=== PATIENT | male | born 1980 | race Caucasian/White ===

== ENCOUNTER 2018-04-11 03:47 | Emergency (ER) | payer BC, SELFPAY ==
[2018-04-11 03:48] VITALS: BP 158/87; PULSE 84; RESP 12; TEMP 36.5; O2SAT 95; BMI 38.7
--- NOTE | 2018-04-11 04:34 | ED.DCSUM_ITS ---
- ER Visit Summary Date of Service: 04/11/18 Chief Complaint: Allergic reaction History of Present Illness: The patient is a 38 M presenting with concern for allergic reaction. Patient states he woke from sleep approximately an hour and a half ago and had diffuse redness and itching of his skin. He has no difficulty breathing or swallowing. He states he has not been outside recently. He denies any new soaps, medications, detergents. No new pets. No new foods. He complains of diffuse itching. Denies other complaints. Physical Examination: Vitals are stable. Patient is afebrile. Alert no acute distress. HEENT exam is unremarkable. Pharynx is normal, no edema, no tongue swelling Neck is supple. Lungs are clear and equal bilaterally. Heart is regular rate and rhythm. Abdomen is soft nontender nondistended. Extremities are unremarkable. Skin is warm and dry. Diffuse urticaria No focal neurologic deficit. Remainder of exam is unremarkable. Emergency Department Course and Treatment: Patient was given Solu-Medrol IV with improvement. On repeat exam, he has no pharyngeal edema, no tongue swelling. He is feeling improved. He is given a prescription for prednisone. Advised follow-up with his primary care physician. Advised return to ED if worsening complaints. Disposition: Discharge home Impression: Allergic reaction This note was generated with [employer] dictation software. It may contain incorrect words, spelling, and punctuation that were not noted in review of the chart prior to signing ED Disposition - Plan for ED Patient: Chief Complaint: Allergic Reaction Instructions: ED Allergic Reaction General Other Prescriptions: Prednisone [Deltasone] 20 mg PO DAILY #5 tablet Referrals: Camden Monsalve DO [Primary Care Provider] -
[2018-04-11] MEDS: MethylPREDNISolone 125 MG/2 ML Vial IV (04:40)
--- NOTE | 2018-04-11 05:39 | ED.DEP ---
ED Disposition - Plan for ED Patient: Chief Complaint: Allergic Reaction Instructions: ED Allergic Reaction General Other Prescriptions: Prednisone [Deltasone] 20 mg PO DAILY #5 tablet Referrals: Camden Monsalve DO [Primary Care Provider] -
[2018-04-11 05:51] VITALS: BP 154/79; PULSE 81; RESP 16; O2SAT 97
== END 2018-04-11 05:52 | disposition home or self-care (01) ==
PROVIDERS: Emergency Provider Emergency Medicine; Family Provider Student in an Organized Health Care Education/Training Program; PCP Student in an Organized Health Care Education/Training Program
DX: L50.0 Allergic urticaria (principal)
CPT/HCPCS: 96374; 99283; A4216

== ENCOUNTER 2018-04-17 05:02 | Emergency (ER) | payer BC, SELFPAY ==
[2018-04-17 05:04] VITALS: BP 183/119; PULSE 82; RESP 17; TEMP 36.7; O2SAT 94; BMI 37.2
--- NOTE | 2018-04-17 05:24 | ED.VISSUMM ---
- ER Visit Summary Date of Service: 04/17/18 Chief Complaint: Hives History of Present Illness: The patient is a 38 M develop hives on the eighth. Was treated with IV Solu-Medrol and oral prednisone and the hives resolved. It returned again tonight. Mild itching. Denies other symptoms. Has no idea why he is allergic reaction is too. Says he has had no difference in his diet, soaps, colognes or anything else new at his home. He denies any lip swelling or tongue swelling. No shortness of breath. Physical Examination: Well-appearing middle-age male. Vital signs are stable afebrile. He does not look septic or toxic. He is no acute distress. H EENT exam unremarkable. No swelling of lips or tongues. Neck nontender. Lungs clear to auscultation bilaterally. Heart regular rate and rhythm no murmur. Abdomen soft nontender. He is moving all 4 extremities. Neurologically is awake and alert with no focal motor deficits. Back nontender. Skin both upper extremities, chest, abdomen and back and thighs have a rash consistent with hives. There is no petechiae or purpura. No vesicles. No sloughing of skin. Test Results: None Emergency Department Course and Treatment: Treated with p.o. prednisone and placed on a prescription for prednisone. Treatment Plan: Prednisone 40 mg a day for 1 week or until rash resolves for 2 days. Disposition: Discharge Impression: Rash secondary to acute allergic reaction (hives). This note was generated with [employer] dictation software. It may contain incorrect words, spelling, and punctuation that were not noted in review of the chart prior to signing ED Disposition - Plan for ED Patient: Chief Complaint: Rash Referrals: Camden Monsalve DO [Primary Care Provider] -
--- NOTE | 2018-04-17 05:26 | ED.DEP ---
ED Disposition - Plan for ED Patient: Disposition: Home or Assisted Living Chief Complaint: Rash Instructions: ED Allergic Reaction General Other, ED Urticaria Prescriptions: Prednisone [Deltasone] 40 mg PO DAILY 7 Days tab Referrals: Camden Monsalve DO [Primary Care Provider] - As Needed Additional Instructions: Prednisone daily for the hives. May stop once the rash has been gone for 2 days. Benadryl for itching. If the hives return you may need to get allergy testing to see what may be the cause of the allergic reaction.
[2018-04-17] MEDS: predniSONE 20 MG Tablet 60 MG PO (05:29)
[2018-04-17 05:31] VITALS: BP 157/106; PULSE 83; RESP 18; O2SAT 93
== END 2018-04-17 05:34 | disposition home or self-care (01) ==
PROVIDERS: Emergency Provider Emergency Medicine; Family Provider Student in an Organized Health Care Education/Training Program; PCP Student in an Organized Health Care Education/Training Program
DX: L50.0 Allergic urticaria (principal)
CPT/HCPCS: 99282

== ENCOUNTER 2018-06-16 00:54 | Emergency (ER) | payer BC, SELFPAY ==
[2018-06-16 00:55] VITALS: BP 183/127; PULSE 89; RESP 24; TEMP 36.2; O2SAT 96; BMI 39.2
[2018-06-16 01:05] VITALS: BP 162/121
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
[2018-06-16 01:56] LABS: Bacteria 0 SEEN /hpf (None Seen); Color, Urine Yellow (Yellow); Glucose, Dipstick Normal (Normal); Ketone-Dipstick Negative (Negative); Leukocyte Esterase-Dipstick Negative /ul (Negative); Mucous, Urine 0 SEEN /hpf (<or=2+); Nitrite-Dipstick Negative (Negative); Occult Blood-Urine Negative /ul (Negative); Protein-Dipstick Negative (Negative); Red Blood Cells-Urine 0 SEEN /hpf (0-5); Squamous Epithelial Cells - UA 0 SEEN /hpf (0-5); Urine Bilirubin Dipstick Negative (Negative); Urine Clarity Clear (Clear); Urine Urobilinogen Normal (Normal); White Blood Cells 0 SEEN /hpf (0-5)
--- NOTE | 2018-06-16 02:34 | ED.DEP ---
ED Disposition - Plan for ED Patient: Disposition: Home or Assisted Living Chief Complaint: Allergic Reaction Instructions: Overactive Bladder Syndrome (OAB) Referrals: Camden Monsalve DO [Primary Care Provider] - Adolfo Salazar MD [STAFF PHYSICIAN] -
[2018-06-16 02:44] VITALS: BP 164/116; PULSE 100; O2SAT 94
--- NOTE | 2018-06-16 02:46 | NURSING ---
DR. GÓMEZ MADE AWARE OF PATIENT'S BP OF 164/[address] GÓMEZ STATES THAT IS NOT SOMETHING I WILL TREAT, HAVE HIM FOLLOW UP WITH HIS DOCTOR. PATIENT MADE AWARE BY THIS NURSE AND HE HAS AN APPT ON MONDAY.
== END 2018-06-16 02:48 | disposition home or self-care (01) ==
PROVIDERS: Emergency Provider Emergency Medicine; Family Provider Student in an Organized Health Care Education/Training Program; PCP Student in an Organized Health Care Education/Training Program
DX: L29.9 Pruritus, unspecified (principal); R20.2 Paresthesia of skin; R39.15 Urgency of urination; R35.0 Frequency of micturition
CPT/HCPCS: 81001; 99282

== ENCOUNTER 2019-01-17 05:59 | Emergency (ER) | payer BC, SELFPAY ==
[2019-01-17 06:00] VITALS: BP 168/113; PULSE 67; RESP 16; TEMP 36.9; O2SAT 94; BMI 40.6
--- NOTE | 2019-01-17 06:05 | CT_ITS ---
HISTORY: LEFT FLANK PAIN-SUDDEN ONSET 4AMURINARY FREQUENCYHX-KIDNEY STONESSURG-UMBILICAL HERNIA EXAMINATION: CT Abdomen And Pelvis W/O Contrast TECHNIQUE: Helically acquired images were obtained of the abdomen and pelvis without oral or IV contrast as per renal stone protocol. A radiation dose optimization technique was used for this scan. IV Contrast dosage and agent: None. Oral contrast: None. COMPARISON: 03/16/2015 FINDINGS: Both kidneys are normal in position. Left UVJ 2 mm stone with mild hydronephrosis and hydroureter proximal to the stone. Several additional 2 mm calyceal stones at the upper and lower pole regions of the left kidney. No renal calculi on the right and no hydronephrosis or hydroureter on the right. Adrenal glands are not enlarged. Lower thorax: Clear. Chronic mild elevation of the right hemidiaphragm. No pleural effusion or pericardial effusion. Limited non-infusion exam. Allowing for this, normal liver, spleen, pancreas, gallbladder, and biliary system. Abdominal aorta is normal in caliber. No ascites or retroperitoneal lymph node enlargement. GI tract: No obstruction. Normal appendix. Pelvis: Poor distention of the urinary bladder. As above, left UVJ 2 mm stone. No free fluid or lymph node enlargement. Bones: No acute osseous abnormality. CT/Abdomen/Pelvis without Cont IMPRESSION: 1. Left UVJ 2 mm stone with mild hydronephrosis and hydroureter proximal to the stone. 2. Several additional 2 mm stones within the left kidney. 3. No hydronephrosis or hydroureter on the right. Individualized dose optimization techniques were used for this CT. at 0701 Reported and signed by: Huey Matos MD Electronically Signed: Huey Matos, at 7:00 EDT Tel , Service support ,
--- NOTE | 2019-01-17 06:07 | ED.VISSUMM ---
- ER Visit Summary Date of Service: 01/17/19 Chief Complaint: Left flank pain History of Present Illness: The patient is a 38 M who woke at 2 AM this morning with urinary urgency and frequency followed by left flank pain. He had similar symptoms with prior kidney stones. No nausea or vomiting. In the past he has been able to pass the kidney stones on his own without requiring surgery. Physical Examination: Blood pressure is 160/113, otherwise vitals normal. Patient lying in bed no acute distress. Heart is regular rate and rhythm. Lung sounds clear. Abdomen is soft with no focal tenderness. Test Results: CBC is remarkable only for hemoglobin concentrated at 16.8. Chemistry studies normal. Urinalysis shows 150 blood. No sign of infection. CT flank per my reading shows a 2-1/2 to 3 mm stone in the distal left ureter. There is also a small stone noted in the left kidney. Emergency Department Course and Treatment: Patient was initially given Toradol, Zofran, and IV fluids. On repeat examination his pain was sniffily improved but he did have re-recurrence of pain. He was given a dose of morphine and Zofran and his will pick him up. He already made a follow-up appointment with his urologist in [place]. Treatment Plan: [] Disposition: Discharge Impression: Left ureterolithiasis This note was generated with [employer] dictation software. It may contain incorrect words, spelling, and punctuation that were not noted in review of the chart prior to signing ED Disposition - Plan for ED Patient: Disposition: Home or Assisted Living Instructions: ED Stone Renal W Colic Prescriptions: Hydrocodone Bitart/Apap 5-325 [[place] 5MG-325MG] 1 tablet PO Q6H PRN PRN 3 Days #10 tablet PRN Reason: Pain Ondansetron [Zofran Odt] 4 mg PO Q8H PRN PRN #10 tablet PRN Reason: Nausea Ketorolac [Toradol] 10 mg PO Q6H PRN #14 tablet PRN Reason: Pain Additional Instructions: Follow-up with your urologist as scheduled.
[2019-01-17] MEDS: Ketorolac 30 MG/ML Syringe IV (06:14)
[2019-01-17] MEDS: Ondansetron 4 MG/2 ML Vial IV ×2 (06:14→06:52)
[2019-01-17] MEDS: 0.9% Normal Saline 1,000 ML 250 ML IV (06:15)
[2019-01-17 06:16] LABS: Red Blood Cells-Urine 0 SEEN /hpf (0-5)
[2019-01-17 06:17] LABS: Glucose, Dipstick Normal (Normal); Ketone-Dipstick 5 mg/dl (Negative); Leukocyte Esterase-Dipstick 25 /ul (Negative); Nitrite-Dipstick Negative (Negative); Occult Blood-Urine 150 /ul (Negative); Protein-Dipstick 30 mg/dl (Negative); Specific Gravity, Urine 1.025 (1.002-1.030); Urine Bilirubin Dipstick Negative (Negative); Urine Urobilinogen Normal (Normal)
[2019-01-17 06:22] LABS: Absolute Lymphocyte Count 2.49 X10^3/ul (0.83-4.51); Absolute Neutrophil Count 6.5 X10^3/uL (2.0-7.7); Basophil# 0.03 X10^3/uL; Basophil% 0.3 % (0-1); Eosinophil# 0.46 X10^3/uL; Eosinophils% 4.4 % (0-5); Hematocrit 47.1 % (40-54); Hemoglobin 16.8 g/dl (13.0-16.5); Lymphocyte # 2.49 X10^3/ul (4.0); Lymphocyte % 23.8 % (19-41); Mean Corp Hgb Conc 35.7 g/gl (32-36); Mean Corpuscular Hgb 28.6 pg (27.0-32.0); Mean Corpuscular Volume 80.1 fL (80-94); Mean Platelet Vol. 10.2 fl (6.2-12.0); Monocyte% 8.6 % (0-10); Neutrophil # 6.51 X10^3/uL (2.7-7.7); Neutrophil % 62.2 % (47-70); POSITIVE COUNT NO; POSITIVE DIFFERENTIAL NO; POSITIVE MORPHOLOGY NO; Platelet Count 242 K/mm3 (150-450); RBC Distribution Width CV 12.8 % (11.6-14.6); Red Blood Count 5.88 M/mm3 (4.6-6.2); White Blood Count 10.5 K/mm3 (4.4-11.0)
[2019-01-17 06:22] LABS: Color, Urine Yellow (Yellow); Urine Clarity Clear (Clear)
[2019-01-17 06:23] LABS: Bacteria RARE /hpf (None Seen); Mucous, Urine 1+ /hpf (<or=2+); Squamous Epithelial Cells - UA 0-5 SEEN /hpf (0-5); White Blood Cells 0-5 SEEN /hpf (0-5)
[2019-01-17 06:35] LABS: Anion Gap 5 (5-15); BUN 15 mg/dL (7-18); BUN/Creat Ratio 13.3 RATIO (10-20); Calcium,Total 8.6 mg/dL (8.5-10.1); Chloride 109 mmol/L (98-107); Creatinine, Serum 1.13 mg/dL (0.70-1.30); EST Glomerular Filtration Rate 77 mL/min (>60); Est Glom Filt Rate - Afr Amer 93 mL/min (>60); Estimated Creatinine Clearance 83.68 ml/min; Glucose 127 mg/dL (74-106); Potassium 3.9 mmol/L (3.5-5.1); Sodium Level 139 mmol/L (136-145)
[2019-01-17] MEDS: Morphine 4 MG/ML Syringe IV (06:52)
[2019-01-17 07:23] VITALS: PULSE 74; RESP 16; O2SAT 98
== END 2019-01-17 07:24 | disposition home or self-care (01) ==
PROVIDERS: Emergency Provider Emergency Medicine; Family Provider Student in an Organized Health Care Education/Training Program; PCP Student in an Organized Health Care Education/Training Program
DX: N13.2 Hydronephrosis with renal and ureteral calculous obstruction (principal); G47.33 Obstructive sleep apnea (adult) (pediatric); Z87.442 Personal history of urinary calculi
CPT/HCPCS: 74176; 80048; 81001; 85025; 96361; 96374; 96375; 99283; J7030; J2405

== ENCOUNTER 2019-06-12 04:31 | Emergency (ER) | payer BC, SELFPAY ==
[2019-06-12 04:31] VITALS: BP 167/113; PULSE 59; RESP 16; TEMP 36.8; O2SAT 96; BMI 38.9
--- NOTE | 2019-06-12 04:48 | CT_ITS ---
STUDY: CT ABDOMEN AND PELVIS WITHOUT CONTRAST REASON FOR EXAM: Male, 39 years old. Left flank pain RADIATION DOSAGE (If Supplied By Facility): CTDIvol = ( 21.02 ) mGy, DLP = ( 1213.11 ) mGycm TECHNIQUE: Transaxial images were obtained from the dome of the diaphragm to the symphysis pubis without oral contrast, and without intravenous contrast. Sagittal and coronal images were reconstructed. Individualized dose optimization techniques were used for this CT. COMPARISON: None. FINDINGS: The lung bases are clear. The liver is normal. No dilated intrahepatic biliary radicles. The gallbladder is normal with no calcifications within it. There is no pericholecystic fluid collection or streakiness The spleen is normal. The pancreas is normal. Both adrenals are normal. A left-sided hydroureteronephrosis secondary to an obstructing 4.4 mm calculus in the distal third of the left ureter. The right kidney is normal The stomach is normal. There is no bowel distention, acute appendicitis or diverticulitis. No constricting lesions are seen in large bowel. The abdominal wall is intact with no hernias. There is no ascites or any free intraperitoneal air. No indication of epiploic appendagitis The vascular structures in the retroperitoneum are normal. There is no retrocrural, retroperitoneal or mesenteric adenopathy. The bones and joints are normal. The urinary bladder is normal.--The prostate is normal. There is no inguinal or pelvic adenopathy. There is no inguinal hernia. . CT/Abdomen/Pelvis without Cont IMPRESSION: A left-sided hydroureteronephrosis secondary to a 4.4 mm obstructing calculus in the distal third of the left ureter Electronically Signed: Germain Forrest MD at 5:38 EDT Tel , Service support ,
--- NOTE | 2019-06-12 04:53 | ED.VIS.GEN ---
History of Present Illness Chief Complaint: Flank Pain Narrative: Patient is a 39-year-old male who presents with chief complaint kidney stone. He does have a history of prior kidney stones with similar symptoms. He complains of 3 hours of severe left flank and left lower abdominal pain. He reports nausea without vomiting. He reports sweats. No documented fevers. He also complains of some diarrhea. He complains of dark urine and urinary urgency. No dysuria. He has otherwise recently been well. He has never needed intervention for kidney stone such as lithotripsy or ureteral stent. Past Medical History - Allergies and Home Meds Allergies/Adverse Reactions: Allergies hydroxyzine [From Vistaril] Adverse Reaction (Verified 06/12/19 04:34) Hives trazodone Adverse Reaction (Verified 06/12/19 04:34) Hives ALMONDS Allergy (Uncoded 01/17/19 06:07) Anaphylaxis Primary Care Physician: Camden Monsalve DO [Primary Care Provider] - Adolfo Salazar MD [STAFF PHYSICIAN] - Past Medical History: - - Ureterolithiasis Smoking Status: Never smoker Review of Systems All systems negative except as indicated General: Reports: Sweats. Denies: Fever Cardiovascular: Denies: Chest pain Respiratory: Denies: Dyspnea Gastrointestinal: Reports: Abdominal pain, Nausea Genitourinary: Reports: - - Urgency Musculoskeletal: Reports: Back pain Physical Exam Vital Signs/Narrative: Vital Signs Temp Pulse Resp BP Pulse Ox 06/12/19 04:31 98.3 F 59 L 16 167/113 H 96 Inital Vital Signs reviewed: Yes General: Well nourished Head: Normocephalic Eyes: EOMI ENT: Moist mucous membranes Neck: Supple Cardiovascular: Regular rate, Regular rhythm Respiratory: No distress, CTA bilaterally Abdomen: Soft, Nondistended, Tender - Left lower quadrant Back: Nontender Skin: Normal color Neurological: Alert Psychological: Normal affect Diagnostic/Tx/Re-eval - Medical Decision Making Patient was treated with IV fluids, Toradol, morphine and Zofran. He reports considerable improvement on reevaluation and his pain is at a tolerable level. Laboratory studies as above notable only for blood in the urine. CT does show a 4.4 mm left distal ureteral calculus. Patient was provided with prescriptions for Percocet and Flomax and referred to urology or he can follow-up with his urologist at the [facility]. He does understand to return for new or worsening symptoms. All questions answered bedside. Patient agreeable to plan was discharged home. ED Disposition - Plan for ED Patient: Disposition: Home or Assisted Living Diagnosis: Ureterolithiasis Instructions: KIDNEY STONE w/ Colic Prescriptions: Tamsulosin HCl [Flomax] 0.4 mg PO DAILY #7 cap Prescription Printed Oxycodone HCl/Acetaminophen [Percocet 5/325] 1 tab PO Q6H PRN PRN 3 Days #12 tab PRN Reason: Pain Prescription Printed Referrals: Camden Monsalve DO [Primary Care Provider] - Adolfo Salazar MD [STAFF PHYSICIAN] -
[2019-06-12 04:56] LABS: Bacteria 0 SEEN /hpf (None Seen); Mucous, Urine 0 SEEN /hpf (<or=2+); Squamous Epithelial Cells - UA 0 SEEN /hpf (0-5)
[2019-06-12] MEDS: 0.9% Normal Saline 1,000 ML 1000 ML IV (04:56)
[2019-06-12] MEDS: Morphine 4 MG/ML Syringe IV (04:56)
[2019-06-12] MEDS: Ketorolac 30 MG/ML Syringe IV (04:57)
[2019-06-12] MEDS: Ondansetron 4 MG/2 ML Vial IV (04:57)
[2019-06-12 04:59] LABS: Color, Urine Yellow (Yellow); Glucose, Dipstick Normal (Normal); Ketone-Dipstick Negative (Negative); Leukocyte Esterase-Dipstick Negative /ul (Negative); Nitrite-Dipstick Negative (Negative); Occult Blood-Urine 250 /ul (Negative); Protein-Dipstick Negative (Negative); Urine Bilirubin Dipstick Negative (Negative); Urine Clarity Clear (Clear); Urine Urobilinogen Normal (Normal)
[2019-06-12 04:59] LABS: Absolute Lymphocyte Count 1.92 X10^3/uL (0.83-4.51); Absolute Neutrophil Count 4.6 X10^3/uL (2.0-7.7); Basophil# 0.04 X10^3/uL; Basophil% 0.5 % (0-1); Eosinophil# 0.45 X10^3/uL; Eosinophils% 5.8 % (0-5); Hematocrit 44.2 % (40-54); Hemoglobin 15.4 g/dL (13.0-16.5); Lymphocyte # 1.92 X10^3/ul (4.0); Lymphocyte % 24.8 % (19-41); Mean Corp Hgb Conc 34.8 g/dL (32-36); Mean Corpuscular Hgb 29.2 pg (27.0-32.0); Mean Corpuscular Volume 83.9 fL (80-94); Mean Platelet Vol. 9.7 fl (6.2-12.0); Monocyte# 0.64 X10^3/uL; Monocyte% 8.3 % (0-10); NRBC Flagged by Analyzer 0 % (0-5); Neutrophil # 4.64 X10^3/uL (2.7-7.7); Neutrophil % 60.1 % (47-70); Platelet Count 174 K/mm3 (150-450); RBC Distribution Width CV 12.6 % (11.6-14.6); Red Blood Count 5.27 M/mm3 (4.6-6.2); White Blood Count 7.7 K/mm3 (4.4-11.0)
[2019-06-12 05:12] LABS: Anion Gap 8 (5-15); BUN 15 mg/dL (7-18); BUN/Creat Ratio 14.3 RATIO (10-20); Calcium,Total 7.9 mg/dL (8.5-10.1); Chloride 110 mmol/L (98-107); Creatinine, Serum 1.05 mg/dL (0.70-1.30); EST Glomerular Filtration Rate 84 mL/min (>60); Est Glom Filt Rate - Afr Amer 102 mL/min (>60); Estimated Creatinine Clearance 92.29 ml/min; Glucose 161 mg/dL (74-106); Potassium 3.6 mmol/L (3.5-5.1); Sodium Level 142 mmol/L (136-145)
[2019-06-12 05:18] LABS: Red Blood Cells-Urine 25-50 SEEN /hpf (0-5); White Blood Cells 0-5 SEEN /hpf (0-5)
[2019-06-12 05:54] VITALS: BP 145/72; PULSE 88; RESP 17; O2SAT 96
== END 2019-06-12 05:55 | disposition home or self-care (01) ==
PROVIDERS: Emergency Provider Emergency Medicine; Family Provider Student in an Organized Health Care Education/Training Program; PCP Student in an Organized Health Care Education/Training Program
DX: N13.2 Hydronephrosis with renal and ureteral calculous obstruction (principal); Z87.442 Personal history of urinary calculi
CPT/HCPCS: 74176; 80048; 81001; 85025; 96361; 96374; 96375; 99283; J7030; A4216; J2405

== ENCOUNTER 2019-07-04 02:59 | Emergency (ER) | payer BC, SELFPAY ==
[2019-07-04 03:00] VITALS: BP 163/96; PULSE 84; RESP 16; TEMP 36.8; O2SAT 96; BMI 41.2
--- NOTE | 2019-07-04 03:19 | ED.DCSUM_ITS ---
History of Present Illness Chief Complaint: Flank Pain Informant: Patient - Abdominal Pain/Flank Pain Onset: Weeks - 1 Context: Gradual Onset Timing: Waxes and wanes Quality: Aching, Dull Location: Left Flank Current Severity: Severe Maximum Severity: Severe Worsened by: Nothing Relieved by: Nothing, - - tried 2 percocet, did not help at all - Nausea/Vomiting/Emesis GI Symptom: Nausea, Vomiting Onset: Yesterday Severity: Mild - Diarrhea/Melena/Hematochezia GI Symptom: Diarrhea. Negative for: Melena, Hematochezia Stool Quality: Negative for: Black, Maroon, JUNIE per rectum Severity: Mild Associated Symptoms: Dysuria - just tonight, Urgency. Negative for: Frequency, Hematuria Narrative: Diagnosed with a kidney stone a couple weeks ago, but just started really giving him pain in this past week. He was prescribed Percocet which she tried to night because the pain got worse, but it really did not help. Vomited once. Saw urology, expectant management at that time due to it being 4.4 mm and stuck at the distal third of the ureter. His pain has been left low back and mid abdomen/flank, but has not radiated into the groin or felt like it has moved at all. No fevers. No hematuria. No urinary retention. - Past Medical History (1) Kidney stone on left side Status: Chronic Past Medical History - Allergies and Home Meds Allergies/Adverse Reactions: Allergies hydroxyzine [From Vistaril] Adverse Reaction (Verified 07/04/19 03:03) Hives trazodone Adverse Reaction (Verified 07/04/19 03:03) Hives ALMONDS Allergy (Uncoded 07/04/19 03:03) Anaphylaxis Primary Care Physician: Camden Monsalve DO [Primary Care Provider] - Lives: Spouse/ Significant Other Smoking Status: Never smoker Review of Systems General: Denies: Chills, Fever, Sweats Eyes: Denies: Visual changes - bilaterally, Diplopia ENT: Denies: Rhinorrhea, Sore throat Cardiovascular: Denies: Chest pain, Palpitations Respiratory: Denies: Dyspnea, Cough, Dyspnea on exertion Gastrointestinal: Reports: Abdominal pain, Nausea, Vomiting, Diarrhea. Denies: Melena, Hematochezia Genitourinary: Reports: Dysuria. Denies: Hematuria, Frequency Musculoskeletal: Reports: Back pain. Denies: Extremity Pain Skin: Denies: Rash, Wounds Neurological: Denies: Headache, Weakness, Numbness Physical Exam Vital Signs/Narrative: Vital Signs Temp Pulse Resp BP Pulse Ox 07/04/19 03:00 98.2 F 84 16 163/96 H 96 Inital Vital Signs reviewed: Yes General: Well nourished, Well developed, No Acute Distress Head: Normocephalic, Atraumatic Eyes: Perrl, EOMI ENT: Moist mucous membranes, No rhinorrhea Neck: Supple, Nontender Cardiovascular: Regular rate, Regular rhythm, No murmurs Respiratory: No distress, CTA bilaterally, Chest nontender Abdomen: Soft, Nontender, Nondistended, Normal bowel sounds Back: Normal Inspection, CVA tenderness - minimal left, - - no rash Extremities: Nontender, No edema Skin: Normal color, No rash, No Trauma Neurological: Alert, Oriented x3, Cranial nerves II-XII grossly intact, Normal Strength, Normal Sensation, Normal Gait Psychological: Normal affect, Normal Mood Diagnostic/Tx/Re-eval Laboratory Tests 07/04/19 Range/Units 03:20 Urine Color Yellow (Yellow) Urine Clarity Sl. Cloudy (Clear) Urine pH 7.0 (5.0 - 8.0) Ur Specific [place] 1.010 (1.002-1.030) Urine Protein 15 H (Negative) mg/dl Urine Glucose (UA) Normal (Normal) mg/dl Urine Ketones 5 H (Negative) mg/dl Urine Occult Blood 25 H (Negative) /ul Urine Nitrite Negative (Negative) Urine Bilirubin Negative (Negative) mg/dL Urine Urobilinogen Normal (Normal) mg/dl Ur Leukocyte Esterase Negative (Negative) /ul Urine RBC 0-5 SEEN (0-5) /hpf Urine WBC 0 SEEN (0-5) /hpf Ur Squamous Epith Cells 0 SEEN (0-5) /hpf Urine Bacteria 0 SEEN (None Seen) /hpf Urine Mucus 0 SEEN (<or=2+) /hpf - Medical Decision Making Urinalysis shows no signs of infection. I reviewed his CT from earlier this month which showed a 4.4 mm left ureteral stone. His vital signs are normal except for mild hypertension. He was given Toradol, Zofran, morphine and did have significant improvement of his pain although it started coming back on reevaluation. He is comfortable going home. He only has 2 Percocet left so he is asking for another prescription which I am fine with. He will be given another dose of morphine prior to discharge with his , advised to follow-up with urology, and he was given strainers to go home with. Continue expectant management. ED Disposition - Plan for ED Patient: Disposition: Home or Assisted Living Diagnosis: Kidney stone on left side, Ureteral colic Instructions: KIDNEY STONE w/ Colic Prescriptions: Oxycodone HCl/Acetaminophen [Percocet 5/325] 1 - 2 tab PO Q4H PRN PRN 3 Days #15 tab PRN Reason: Pain Prescription Printed Referrals: Camden Monsalve DO [Primary Care Provider] - Adolfo Salazar MD [STAFF PHYSICIAN] - 3-5 Days
[2019-07-04] MEDS: Ondansetron 4 MG/2 ML Vial IV (03:25)
[2019-07-04] MEDS: Ketorolac 30 MG/ML Syringe IV (03:26)
[2019-07-04] MEDS: Morphine 4 MG/ML Syringe IV ×2 (03:27→04:39)
[2019-07-04 03:29] LABS: Bacteria 0 SEEN /hpf (None Seen); Mucous, Urine 0 SEEN /hpf (<or=2+); Squamous Epithelial Cells - UA 0 SEEN /hpf (0-5); White Blood Cells 0 SEEN /hpf (0-5)
[2019-07-04 04:01] LABS: Color, Urine Yellow (Yellow); Glucose, Dipstick Normal (Normal); Ketone-Dipstick 5 mg/dl (Negative); Leukocyte Esterase-Dipstick Negative /ul (Negative); Nitrite-Dipstick Negative (Negative); Occult Blood-Urine 25 /ul (Negative); Protein-Dipstick 15 mg/dl (Negative); Urine Bilirubin Dipstick Negative (Negative); Urine Clarity Sl. Cloudy (Clear); Urine Urobilinogen Normal (Normal)
[2019-07-04 04:10] LABS: Red Blood Cells-Urine 0-5 SEEN /hpf (0-5)
[2019-07-04 04:53] VITALS: BP 152/99; PULSE 77; RESP 18; O2SAT 95
== END 2019-07-04 04:54 | disposition home or self-care (01) ==
PROVIDERS: Emergency Provider Emergency Medicine; Family Provider Student in an Organized Health Care Education/Training Program; PCP Student in an Organized Health Care Education/Training Program
DX: N20.2 Calculus of kidney with calculus of ureter (principal); Z87.442 Personal history of urinary calculi
CPT/HCPCS: 81001; 96374; 96375; 96376; 99285; A4216; J2405

== ENCOUNTER → 2019-07-09 16:03 | Outpatient (CLI) | payer BC, SELFPAY ==
[2019-07-04 03:00] VITALS: BMI 41.2
--- NOTE | 2019-07-09 16:18 | RAD_ITS ---
STUDY: X-RAY - ABDOMEN/PELVIS REASON FOR EXAM: Male, 39 years old. Left-sided kidney stone. Preop. TECHNIQUE: Two AP supine views of the abdomen and pelvis. COMPARISON: CT of the abdomen and pelvis, June 12, 2019. FINDINGS: The lung bases are not included. There is an unremarkable bowel gas pattern. There is no demonstrated free abdominal air. The visualized liver, spleen and kidneys are grossly normal in size and morphology. There is no visualized renal or ureteral calculi. The distal left ureteral calculus seen on the CT is not identified. Stable right sided phleboliths. Normal visualized osseous structures. RAD/Abdomen Single View IMPRESSION: 1. No visualized left renal or ureteral calculus. 2. No acute intra-abdominal or pelvic process. Electronically Signed: Lee Bauman DO at 16:40 EST Tel [phone], Service support ,
== END ==
LOC: RAD 16:03
PROVIDERS: Family Provider Student in an Organized Health Care Education/Training Program; PCP Student in an Organized Health Care Education/Training Program; Referring Provider Urology; Visit Provider Urology
DX: N20.0 Calculus of kidney (principal)
CPT/HCPCS: 74018

== ENCOUNTER → 2019-08-14 12:47 | Outpatient (CLI) | payer BC, SELFPAY | PROVIDERS: Family Provider Student in an Organized Health Care Education/Training Program; PCP Student in an Organized Health Care Education/Training Program; Referring Provider Urology; Visit Provider Urology | DX: Z00.00 Encounter for general adult medical examination without abnormal findings (principal) ==

== ENCOUNTER → 2022-07-08 | Outpatient (CLI) | payer BC, SELFPAY ==
--- NOTE | 2022-07-08 07:22 | US_ITS ---
STUDY: ABDOMINAL ULTRASOUND - ELASTOGRAPHY REASON FOR VISIT: Male, 42 years old. Elevated liver function tests. TECHNIQUE: Liver stiffness measurements were obtained on a Nitronex RS 85 ultrasound machine using a CA 1-7 probe following the SRU guidelines. 3 measurements were obtained using a 2-D-SWE method. The IQR/M was 12% suggesting a quality data set. TECHNICAL QUALITY: Adequate. COMPARISON: Comparison is made with prior study done earlier in the day. FINDINGS: Liver: Hepatomegaly and fatty infiltration of the liver. Median liver stiffness measured 9.1 kPa. US/Elastography Parenchyma/Organ IMPRESSION: Liver stiffness measures 9.1 kPa compatible with F2-F3 (Mild to moderate liver fibrosis) Metavir score. Electronically Signed: Ryan Zuleta MD at 12:40 EDT ,
--- NOTE | 2022-07-08 07:22 | US_ITS ---
STUDY: ABDOMINAL ULTRASOUND - RIGHT UPPER QUADRANT REASON FOR VISIT: Male, 42 years old ELEVATED LFTS TECHNIQUE: Ultrasound evaluation of the right upper quadrant was performed with real-time and static wade-scale imaging. TECHNICAL QUALITY: Adequate. COMPARISON: None. FINDINGS: Liver: The liver is enlarged and measures 20 cm. There is increased echogenicity consistent with fatty infiltration. The bile ducts are within normal limits. There is hepatic color flow. The direction of portal flow is hepatopetal. There is no demonstrated mass lesion. Gallbladder: Normal distended gallbladder. The gallbladder wall measures 2.6 mm. There is a negative sonographic Diop''s sign. There is no pericholecystic fluid. There are no gallstones. Common Bile Duct (C.B.D.): The common bile duct measures 3.5 mm. Pancreas: Normal size of the head, body and tail of the pancreas. There is normal echogenicity of the pancreas. There is no demonstrated pancreatic mass or cyst. Right Kidney: Normal size of the right kidney. The right kidney measures 14 cm x 6.4 cm x 6.9 cm. Normal renal cortex. The right cortex measures 2.1 cm. There is no demonstrated renal mass or cyst. There is no right hydronephrosis. US/Abdomen Limited IMPRESSION: Hepatomegaly and diffuse fatty infiltration of the liver. Electronically Signed: Ryan Zuleta MD at 12:39 EDT ,
== END | disposition home or self-care (01) ==
PROVIDERS: PCP Student in an Organized Health Care Education/Training Program; Referring Provider Nurse Practitioner Family; Visit Provider Nurse Practitioner Family
DX: R79.89 Other specified abnormal findings of blood chemistry (principal)
CPT/HCPCS: 76705; 76981